=== PATIENT | female | born 1985 | race Caucasian/White ===

== ENCOUNTER 2017-08-11 09:28 | Emergency (ER) | payer MEDICAID ==
[~2017-08-11] VITALS: Ht 160 cm; Wt 70.0 kg
[~2017-08-11 09:28] MED LIST: ACET500C5 PO; BACTDS PO; CALC400T19 PO; CIPR500T4 PO; IBUP-1542 PO; METO10TA92 PO; NITR-58 PO
[2017-08-11 09:33] VITALS: Ht 160 cm; Wt 70.0 kg
[2017-08-11] MEDS ORDERED: IBUPROFEN 800 MG TAB PO ONE (10:30)
--- NOTE | 2017-08-11 10:58 | RADRPT ---
PROCEDURE: CT Head without. CLINICAL INDICATION: 32-year-old female with trauma, headache, right eye symptoms. TECHNIQUE: The study was performed utilizing a multi-slice, multidetector CT scanner. Direct spira l 1 mm axial sections were obtained through the head without the use of intravenous contrast materia l. 1 or more of the following dose reduction techniques were utilized: Automated exposure control, adjustment of the mA and/or kV according to patient's size, iterative reconstruction technique. Co julianne and sagittal reformations were obtained. The images were reviewed on a PACS workstation. RADIATION DOSE: CTDIvol: 43.9 mGyDLP: 630.2 mGy-cm COMPARISON: No prior studies are available for comparison. FINDINGS: There is no intracranial hemorrhage, extra-axial fluid collection, mass lesion, midline shift or hyd rocephalus. There is a small over 3 x 4 mm calcification along the inner table of the right calvari um (axial series image 14, 7 series image 20), which may be related to small focal hyperostosis vers us meningioma. There is a 2 mm calcification involving the right parietal sulci (axial series image 16). The ventricles, sulci and cisterns are within normal limits. The white matter is unremarkable. The greco-white matter differentiation is preserved. The basal cisterns are patent. The midline s tructures are intact. The orbits, calvarium and extracranial soft tissues are normal in appearance. The visualized paranasal sinuses, mastoid air cells and middle ear cavities are normally aerated. IMPRESSION: 1. No acute intracranial abnormality. No intracranial hemorrhage, extra-axial fluid collection, ma ss lesion or hydrocephalous. 2. 3 x 4 mm calcification along the inner table of the right calvarium, which may be related to sma ll focal hyperostosis versus small meningioma 3. 2 mm calcification involving the right parietal sulci, suggestive of remote prior neurocysticerc osis. RPTAT: HGAS .Brent Michaels MD, Date Time Electronically viewed and signed by .Brent Michaels MD, on 08/11/2017 10:57 .S/
--- NOTE | 2017-08-11 11:37 | ERD ---
ER Documentation Chief Complaint Date/Time DATE: 08/11/17 TIME: 11:33 Chief Complaint pt bib self with c/o headache, ear pain, dizzy feeling starting 22 days ago HPI This is a 32-year-old female complains of years of migraine since she was a child. The patient states that she is having migrainous symptoms again for the past 22 days. She states her pain is located in the right retro-orbital region that is a throbbing pain and she has preceding symptoms of an aura with loss of vision in the right eye and it comes back and the headache starts thereafter. She says this is a recurrent pattern for her. She does also has some dizziness at times. There is no numbness or weakness no nausea vomiting no fever. The patient says the headache tends to come and go. She does have photophobia and phonophobia and positional worsening. Pain is moderate at most and is currently mild. ROS All systems reviewed and are negative except as per history of present illness. Medications Home Meds Active Scripts Calcium Carbonate* (Tums* Ultra) 1,000 Mg Tab.chew, 1000 MG PO TID, #60 TAB.CHEW Prov:FRANKY OWEN PA-C 12/05/15 Metoclopramide* (Reglan*) 10 Mg Tablet, 10 MG PO Q6 Y for NAUSEA AND/OR VOMITING , #10 TAB Prov:SALVADOR LIEBERMAN 10/11/15 Nitrofurantoin Monohyd Macrocr* (Macrobid*) 100 Mg Capsr, 100 MG PO BID for 7 Days Prov:SALVADOR LIEBERMAN 10/11/15 Acetaminophen* (Tylophen*) 500 Mg Capsule, 2 CAP PO Q8H Y for PAIN AND OR ELEVATED TEMP, #20 CAP Prov:SALVADOR LIEBERMAN 10/11/15 Sulfamethoxazole-Trimethoprim* (Bactrim* DS) 800-160 Mg Tab, 1 TAB PO BID for 14 Days, TAB Prov:SHAZIA REID DO 08/05/15 Sulfamethoxazole-Trimethoprim* (Bactrim* DS) 800-160 Mg Tab, 1 TAB PO DAILY for 14 Days, TAB Prov:SHAZIA REID DO 08/05/15 Reported Medications Ibuprofen* (Ibuprofen*) 600 Mg Tablet, 600 MG PO Q8, TAB 08/05/15 Ciprofloxacin Hcl* (Ciprofloxacin Hcl*) 500 Mg Tablet, 500 MG PO BID, TAB 08/05/15 Allergies Allergies: Coded Allergies: No Known Drug Allergies (Unverified Allergy, Unknown, 08/05/15) PMhx/Soc History of Surgery: Yes () Anesthesia Reaction: No Hx Neurological Disorder: No Hx Respiratory Disorders: No Hx Cardiac Disorders: No Hx Psychiatric Problems: No Hx Miscellaneous Medical Probl: No Hx Alcohol Use: No Hx Substance Use: No Hx Tobacco Use: No Smoking Status: Never smoker FmHx Family History: No coronary disease Physical Exam Vitals Vital Signs Date Time Temp Pulse Resp B/P Pulse Ox O2 Delivery O2 Flow Rate FiO2 08/11/17 09:33 97.9 96 18 110/64 98 Physical Exam Const: Well-developed, well-nourished Head: Atraumatic, normocephalic Eyes: Normal Conjunctiva, PERRLA, EOMI, normal sclera, no nystagmus ENT: Normal External Ears, Nose and Mouth, moist mucus membranes. Neck: Full range of motion. No meningismus, no lymphadenopathy. Resp: Clear to auscultation bilaterally, no wheezing, rhonchi, rales Cardio: Regular rate and rhythm, no murmurs, S1 S2 present Abd: Soft, non tender x 4, non distended. Normal bowel sounds, no guarding or rebound, no pulsitile abdominal masses or bruits Skin: No petechiae or rashes, no ecchymosis , no maculopapular rash Back: No midline or flank tenderness Ext: No cyanosis, or edema, FROM x 4, normal inspection, neurovascularly intact x 4 Neur: Awake and alert, STR 5/5 x 4, sensation intact x 4, no focal findings, cerebellum intact Psych: Normal Mood and Affect Results 24 hrs Current Medications Medications (Trade) Dose Ordered Sig/Katherine Route PRN Reason Start Time Stop Time Status Last Admin Dose Admin Ibuprofen (Motrin) 800 mg ONCE ONCE PO 08/11/17 10:30 08/11/17 10:31 DC 08/11/17 10:20 Procedures/MDM PROCEDURE: CT Head without. CLINICAL INDICATION: 32-year-old female with trauma, headache, right eye symptoms. TECHNIQUE: The study was performed utilizing a multi-slice, multidetector CT scanner. Direct spiral 1 mm axial sections were obtained through the head without the use of intravenous contrast material. 1 or more of the following dose reduction techniques were utilized: Automated exposure control, adjustment of the mA and/or kV according to patient's size, iterative reconstruction technique. Coronal and sagittal reformations were obtained. The images were reviewed on a PACS workstation. RADIATION DOSE: CTDIvol: 43.9 mGy DLP: 630.2 mGy-cm COMPARISON: No prior studies are available for comparison. FINDINGS: There is no intracranial hemorrhage, extra-axial fluid collection, mass lesion, midline shift or hydrocephalus. There is a small over 3 x 4 mm calcification along the inner table of the right calvarium (axial series image 14, 7 series image 20), which may be related to small focal hyperostosis versus meningioma. There is a 2 mm calcification involving the right parietal sulci (axial series image 16). The ventricles, sulci and cisterns are within normal limits. The white matter is unremarkable. The greco-white matter differentiation is preserved. The basal cisterns are patent. The midline structures are intact. The orbits, calvarium and extracranial soft tissues are normal in appearance. The visualized paranasal sinuses, mastoid air cells and middle ear cavities are normally aerated. IMPRESSION: 1. No acute intracranial abnormality. No intracranial hemorrhage, extra-axial fluid collection, mass lesion or hydrocephalous. 2. 3 x 4 mm calcification along the inner table of the right calvarium, which may be related to small focal hyperostosis versus small meningioma 3. 2 mm calcification involving the right parietal sulci, suggestive of remote prior neurocysticercosis. RPTAT: HGAS .Brent Michaels MD, MD Date Time Electronically viewed and signed by .Brent Michaels MD, MD on 08/11/2017 10: 57 .S/ CC: STEVEN GLOVER DO Intracranial hemorrhage. The patient is having chronic migraines I feel that she is having an exacerbation of her symptoms. Discussed with her foods to avoid for migraine exacerbation. We will discharge her home with Motrin and Cidra and Compazine Departure Diagnosis: Primary Impression: Migraine headache Migraine type: with aura Status migrainosus presence: without status migrainosus Intractability: not intractable Qualified Code: G43.109 - Migraine with aura and without status migrainosus, not intractable Condition: Stable STEVEN GLOVER DO Aug 11, 2017 11:36
[2017-08-11] MEDS ORDERED: PROC10TA10 PO (11:39)
[2017-08-11] MEDS ORDERED: HYDR-902 PO (11:39)
[2017-08-11] MEDS ORDERED: IBUP-1542 PO (11:39)
== END 2017-08-11 11:56 | disposition home or self-care (01) ==
LOC: FTE 09:28
DX: G43.109 Migraine with aura, not intractable, without status migrainosus (principal)
CPT/HCPCS: 70450; Z7502; Z7610